=== PATIENT | male | born 1975 | race Hispanic/Latino ===

== ENCOUNTER 2017-05-14 05:43 | Day surgery (SDC) | payer OTHER ==
[~2017-05-14] VITALS: Ht 177.8 cm; Wt 106.6 kg
[~2017-05-14 05:43] MED LIST: DOXYCYCLINE MO100 MG PO; ISONIAZID300 MG PO; MOTRIN IB200 MG PO; NITROSTAT0.3 MG SL; NORCO 5-325 TA1 EACH PO; TYLENOL325 MG PO; VITAMIN B-650 MG PO
[2017-05-14] MEDS ORDERED: DOK250 MG PO (05:52)
[2017-05-14] MEDS ORDERED: TRAMADOL HCL50 MG PO (05:52)
[2017-05-14] MEDS ORDERED: HYDROCODON-ACE1 EA10 PO (08:17)
--- NOTE | 2017-05-14 08:17 | NUR ---
[facility], O2 DECREASED TO 6L.
--- NOTE | 2017-05-14 08:52 | NUR ---
PT ABLE TO LIFT LEGS OFF BED. UNABLE TO WIGGLE TOES. ICED WATER GIVEN. CONTINUOUS PULSE OX IN PLACE.
--- NOTE | 2017-05-14 09:52 | NUR ---
JELLO GIVEN AND EATEN. PT TOLERATES THAT WELL. MORE ICED WATER GIVEN. HOB ELEVATED. PT DENIES URGE TO VOID.
--- NOTE | 2017-05-14 10:13 | NUR ---
LE 1000: PT UP W/2 RN STANDBY. PT REPORTS "NORMAL" FEELING IN HIS FEET AND STANDS AND AMBULATES WELL. PT VOIDS 850 ML CLEAR YELLOW URINE. VERBAL DC INSTRUCTIONS GIVEN AND HE VERBALIZES UNDERSTANDING. PT DRESSED W/ASSIST OF [employer]. CALL REPORT GIVEN TO OZ DAVIDSON @ [facility] AND HER QUESTIONS WERE ANSWERED.
--- NOTE | 2017-05-16 10:32 | OR ---
[facility] [address], [place] [address] Signed DATE OF SERVICE: 05/14/2017 PREOPERATIVE DIAGNOSIS: Posterior [id number] with yellow vessel loop seton. POSTOPERATIVE DIAGNOSIS: Posterior [id number] with yellow vessel loop seton. PROCEDURE: Exam under anesthesia. Anal fistulotomy (completion staged approach). SURGEON: Raulito Trejo MD. ANESTHESIA: Saddle block with sedation (Raulito Cueto CRNA), local 10 mL of 0.25% Marcaine with epinephrine. INDICATION: This 42-year-old man is a prisoner at [facility]. He was previously a patient of GOLD Ramirez and now Dr. Hank Kothari. He was noted to have a complex relatively long posterior anal fistula and underwent exam under anesthesia and partial fistulotomy on April 10, 2017. The dominant portion of the fistula engulfed much of the sphincter muscle and on that basis, a yellow vessel loop seton was placed. The area of partial fistulotomy has now healed to the level of the seton and good fibrosis of the fistulous tract is anticipated due to the seton. He is admitted at this time to undergo exam under anesthesia and completion fistulotomy. He understands the risks of bleeding, infection, variable degrees of incontinence and other unforeseen complications including recurrence and wished to proceed. FINDINGS: Granulation tissue was noted along the seton tract and at the external opening a bit. The seton had allowed for good fibrosis of sphincter muscle itself. Division of the soft tissue and portion of sphincter was accomplished without problem. The site with granulation cauterized and curetted to complete removal of the granulation tissue. He tolerated procedure well. DESCRIPTION OF PROCEDURE: The patient was brought to the operating room and given a saddle block anesthetic. He was placed in the prone roger-knife position. Buttocks were taped apart. Intravenous sedation was given as well. He received preoperative antibiotics. Sequential compression device stockings and heparin was subcutaneously administered as well. Examination of the Electronically Signed By: RAULITO TREJO MD 05/16/17 1032 PATIENT NAME: STEFANY SANDS OPERATIVE REPORT DATE OF : 79 PHYSICIAN: RAULITO TREJO MD REPORT #: [id number] REPORT IS CONFIDENTIAL AND NOT TO BE RELEASED WITHOUT AUTHORIZATION [facility] [address], [place] [address] Signed anal area showed the yellow vessel loop in the posterior anal area with some granulation tissue at its entry and exit site. The soft tissue from prior fistulotomy to this seton site had healed over completely. Gentle pressure on the seton showed good fibrosis of the sphincter complex at that area. The tissue was divided with electrocautery completely and the seton removed. The seton tract of the fistula was noted to have exuberant granulation and this was cauterized and ultimately curetted. Once hemostasis was assured, 10 mL of 0.25% Marcaine with epinephrine was injected locally. Irrigation was undertaken. A peripad was applied and secured and he was returned to the supine position and taken to recovery room in good condition. BLOOD LOSS: Minimal. COMPLICATIONS: None. MD FLAVIA Barraza/Kendall /[id number] cc: Hank Kothari MD Electronically Signed By: RAULITO TREJO MD 05/16/17 1032 PATIENT NAME: STEFANY SANDS OPERATIVE REPORT DATE OF : 79 PHYSICIAN: RAULITO TREJO MD REPORT #: [id number] REPORT IS CONFIDENTIAL AND NOT TO BE RELEASED WITHOUT AUTHORIZATION
== END 2017-05-14 10:10 | disposition home or self-care (01) ==
LOC: DS 05:43
PROVIDERS: Surgery
PROC: 0D9Q0ZZ Drainage of Anus, Open Approach (ICD-10-PCS; principal; 2017-05-14 06:45)
DX: Z48.03 Encounter for change or removal of drains (principal); K60.3 Anal fistula; K21.9 Gastro-esophageal reflux disease without esophagitis; Z86.11 Personal history of tuberculosis; Z98.890 Other specified postprocedural states
CPT/HCPCS: 00902; J0330; J0694; J1100; J1885; J2250; J2405; J2704; J2710; J2765; J3010; J7120